=== PATIENT | male | born 1955 | race Native Hawaiian/Other Pacific Islander ===

== ENCOUNTER 2019-06-19 18:20 | Emergency (ER) | payer OTHER ==
[~2019-06-19] VITALS: Ht 185.4 cm; Wt 102.1 kg
[2019-06-19 18:22] VITALS: TEMP 97.7
[2019-06-19 18:42] LABS: PLATELET COUNT 244 K/uL (142-355)
[2019-06-19 18:53] LABS: POTASSIUM 3.6 mmol/L (3.6-5.2); SODIUM 138 mmol/L (136-145)
[2019-06-19 19:04] LABS: PARTIAL THROMBOPLASTIN TIME 23.4 SECONDS (24.5-33.6)
[2019-06-19 19:32] VITALS: BP 145/101
== END 2019-06-19 19:32 | disposition short-term general hospital (02) ==
LOC: ED 18:20
PROVIDERS: Family Medicine
DX: I21.29 ST elevation (STEMI) myocardial infarction involving other sites (principal)
CPT/HCPCS: 36415; 80053; 82550; 84484; 85027; 85379; 85610; 85730; 93005; 96365; 96374; 99285; J1642; J1644

== ENCOUNTER 2019-06-19 19:43 | Outpatient (CLI) | payer OTHER | END 2019-06-19 20:16 | disposition short-term general hospital (02) | LOC: AMB 19:43 | DX: R07.89 Other chest pain (principal); I21.29 ST elevation (STEMI) myocardial infarction involving other sites | CPT/HCPCS: A0425; A0427 ==